=== PATIENT | female | born 1995 | race Asian ===

== ENCOUNTER 2016-06-13 17:12 | Emergency (ER) | payer BC, OTHER ==
--- NOTE | 2016-06-13 18:26 | REP ---
Left wrist four views : There is no fracture or dislocation. Mineralization and joint spaces are normal. There are no calcifications or foreign bodies. Impression: Negative left wrist . Signed by Kosta Moreno MD 06/13/2016 06:18 P
[2016-06-13] MEDS ORDERED: IBUPROFEN 600 MG TAB As Ordered ONE (19:56)
--- NOTE | 2016-06-13 20:07 | EDDOCDS ---
Physician Documentation [facility] Name: Taylor Sol Age: 21 yrs Sex: Female : 1995 Arrival Date: 06/13/2016 Time: 17:12 Bed Triage 1 Private MD: NO PRIMARY PHYSICIAN, . Disposition: 06/13/16 19:57 Discharged to Home/Self Care. Impression: Other specified sprain of left wrist. - Condition is Stable. - Discharge Instructions: Elastic Bandage and RICE, Wrist Pain, Wrist Splint, [id number]. - Prescriptions for Ibuprofen 600 mg Oral Tablet - take 1 tablet by ORAL route every 6 hours As needed take with food; 30 tablet. - Medication Reconciliation, Local Pharmacy Hours, Work Release Form - 3 day form. - Follow up: [facility]; When: 4 - 5 days; Reason: Recheck today's complaints, Continuance of care. - Problem is new. - Symptoms are unchanged. - Notes: ice 20 min an ho Historical: - Allergies: no known allergies; - Home Meds: 1. none - PMHx: Chronic Back pain; chronic headaches; - PSHx: none; - Social history: Smoking status: Patient states was never smoker of tobacco. No barriers to communication noted, The patient speaks fluent Hebrew, Speaks appropriately for age. - Family history: Not pertinent. - : The pt / caregiver states he / she is not on anticoagulants. Home medication list is obtained from the patient. - Exposure Risk Screening:: None identified. BATCH AND FURNACE MANAGER: 06/13 17:22 LMP 06/13/2016 hs1 Vital Signs: 17:13 BP 143 / 78; Pulse 82; Resp 16; Temp 98.8; Pulse Ox 98% ; Weight 75.75 kg / 167 lbs; elp Height 5 ft. 4 in. (162.56 cm); 19:39 BP 148 / 63; Pulse 90; Resp 20; Temp 97.9; Pulse Ox 94% on R/A; Pain 4/10; jmv 17:13 Body Mass Index 28.67 (75.75 kg, 162.56 cm) elp MDM: 17:25 Wrist, Complete Ordered. EDMS 19:47 Financial registration complete. [facility] 19:47 [facility] Payment Agreement was scanned into [employer] and attached to record. [facility] 19:49 Ibuprofen 600 mg PO once ordered. ke 19:49 [facility] Nursing Order ordered. magalis Administered Medications: 20:03 Drug: Ibuprofen 600 mg [ibuprofen 600 mg tablet (1 tabs)] Route: PO; dsf Signatures: Dispatcher MedHost Yfn Hodges, PEEL OVEN TENDER PEEL OVEN TENDER Amrita Orozco RN RN hs1 Taya Stevenson RN RN dsf Sylvia Luevano, Reg Reg [email or web address] The chart was reviewed and I authenticate all verbal orders and agree with the evaluation and treatment provided.Attachments: 19:47 [facility] Payment Agreement [email or web address] MTDD
--- NOTE | 2016-06-13 20:08 | EDDOCDS ---
Nurse's Notes [facility] Name: Taylor Sol Age: 21 yrs Sex: Female : 1995 Arrival Date: 06/13/2016 Time: 17:12 Bed Triage 1 Private MD: NO PRIMARY PHYSICIAN, . Diagnosis: Other specified sprain of left wrist Presentation: 06/13 17:20 Presenting complaint: Patient states: fell on ice and pain in left wrist. Patient hs1 states fell around 4 pm. Swelling noted. Adult Sepsis Screening: The patient does not have new or worsening altered mentation. Patient's respiratory rate is less than 22. Systolic blood pressure is less than or equal to 100 (1 point). Patient has a qSOFA score of 0- Negative Sepsis Screen. Suicide/Homicide risk assessment- the patient denies having any suicidal and/or homicidal ideations and does not present with any other emotional, behavioral or mental health complaints. Status: Patient is not a truck repair service estimator or dependent. Transition of care: patient was not received from another setting of care. 17:20 Method Of Arrival: Walkin/Carried/Asstd hs1 17:20 Acuity: ERIC Level 4 hs1 Triage Assessment: 17:22 General: Appears in no apparent distress, Behavior is appropriate for age, cooperative. hs1 Pain: Location: dorsal aspect of left wrist Pain currently is 6 out of 10 on a pain scale. HIV screening NA for this visit Offered previously. Respiratory: Airway is patent is compromised Respiratory effort is even, unlabored, Respiratory pattern is regular, symmetrical. Musculoskeletal: Swelling present in dorsal aspect of left wrist. MAINTENANCE TECHNICIAN 2ND SHIFT: 17:22 LMP 06/13/2016 hs1 Historical: - Allergies: no known allergies; - Home Meds: 1. none - PMHx: Chronic Back pain; chronic headaches; - PSHx: none; - Social history: Smoking status: Patient states was never smoker of tobacco. No barriers to communication noted, The patient speaks fluent Estonian, Speaks appropriately for age. - Family history: Not pertinent. - : The pt / caregiver states he / she is not on anticoagulants. Home medication list is obtained from the patient. - Exposure Risk Screening:: None identified. Screenin:05 Screening information is obtained from the patient. Fall risk: No risks identified. dsf Assistance ADL's: requires no assistance with activities of daily living. Abuse/DV Screen: The patient / caregiver reports he/she is: not in a situation that causes fear, pain or injury. Nutritional screening: No deficits noted. Advance Directives: Currently, there is no health care proxy. home support is adequate. Assessment: 20:05 General: Appears in no apparent distress, Behavior is appropriate for age, cooperative. dsf Pain: Location: dorsal aspect of left wrist Pain currently is 4 out of 10 on a pain scale. Neurological: Level of Consciousness is awake, alert. Cardiovascular: No deficits noted. Respiratory: No deficits noted. Derm: Skin is pink, warm & dry. Vital Signs: 17:13 BP 143 / 78; Pulse 82; Resp 16; Temp 98.8; Pulse Ox 98% ; Weight 75.75 kg; Height 5 ft. elp 4 in. (162.56 cm); 19:39 BP 148 / 63; Pulse 90; Resp 20; Temp 97.9; Pulse Ox 94% on R/A; Pain 4/10; jmv 17:13 Body Mass Index 28.67 (75.75 kg, 162.56 cm) [facility] Vitals: 17:13 Log In Time: June 13, 2016 at 17:11. [facility] ED Course: 17:13 Patient visited by Natalie Orellana PCA. elp 17:13 NO PRIMARY PHYSICIAN, . is Private Physician. elp 17:13 Patient moved to Waiting elp 17:14 Patient visited by Natalie Orellana PCA. elp 17:14 Patient moved to Pre RCE elp 17:21 Triage Initiated hs1 19:09 Wrist, Complete Returned. EDMS 19:17 Patient name changed from Ernalyn\S\Tansioco\S\Aidee\S\ to Ernalyn\S\Tansioco\S\Sol. EDMS 19:36 Patient moved to Triage 1 dsf 19:40 Patient visited by Jonny Washington PCA. jmv 19:42 Yfn Galindo FNP is [facility]. ke 19:42 Patient visited by Yfn Galindo FNP. ke 19:42 Patient visited by Yfn Galindo FNP. ke 19:47 [facility] [place] Agreement was scanned into Ixtens and attached to record. [email or web address] 19:57 [facility] is Referral Physician. ke 20:04 No IV's were initiated during this patient's visit. No procedures done that require dsf assistance. Velcro wrist splint applied to left wrist. Patient with positive distal sensation and brisk distal capillary refill after application. 20:05 The patient / caregiver is instructed regarding the plan of care and ED course. dsf Administered Medications: 20:03 Drug: Ibuprofen 600 mg [ibuprofen 600 mg tablet (1 tabs)] Route: PO; dsf Order Results: Radiology Order: Wrist, Complete Test: Wrist, Complete REASON FOR EXAMINATION: Trauma; Left wrist four views :; ; There is no fracture or dislocation.; ; Mineralization and joint spaces are normal.; ; There are no calcifications or foreign bodies.; ; Impression:; ; Negative left wrist .; ; ; Signed by; Kosta Moreno MD 06/13/2016 06:18 P; Outcome: 19:57 Discharge ordered by Provider. ke 20:05 Discharge Assessment: Patient awake, alert and oriented x 3. No cognitive and/or dsf functional deficits noted. Patient verbalized understanding of disposition instructions. patient administered narcotics - no. The following High Risk Discharge criteria are identified: None. Discharged to home ambulatory. Condition: stable. Discharge instructions given to patient, Instructed on discharge instructions, follow up and referral plans. medication usage, Demonstrated understanding of instructions, medications, Pt was receptive of discharge instructions/ teaching. Prescriptions given X 1, Work note provided to patient. No special radiology studies were completed. Property sent home with patient. 20:07 Patient left the ED. dsf Signatures: Dispatcher MedHost EDMS Yfn Galindo, CITY ENGINEER CITY ENGINEER Amrita Orozco RN RN hs1 Taya Stevenson RN RN dsf Natalie Orellana, OFFSET PLATE PREPARATION SUPERVISOR OFFSET PLATE PREPARATION SUPERVISOR Sylvia Dubon, Reg Reg [email or web address] Jonny Washington, OFFSET PLATE PREPARATION SUPERVISOR OFFSET PLATE PREPARATION SUPERVISOR jmv Corrections: (The following items were deleted from the chart) 17:24 17:20 Acuity: ERIC Level 3 hs1 hs1 [facility]
--- NOTE | 2016-06-15 21:07 | EDDOCDS ---
Physician Documentation [facility] Name: Taylor Sol Age: 21 yrs Sex: Female : 1995 Arrival Date: 06/13/2016 Time: 17:12 Bed Triage 1 Private MD: NO PRIMARY PHYSICIAN, . Disposition: 06/13/16 19:57 Discharged to Home/Self Care. Impression: Other specified sprain of left wrist. - Condition is Stable. - Discharge Instructions: Elastic Bandage and RICE, Wrist Pain, Wrist Splint, [id number]. - Prescriptions for Ibuprofen 600 mg Oral Tablet - take 1 tablet by ORAL route every 6 hours As needed take with food; 30 tablet. - Medication Reconciliation, Local Pharmacy Hours, Work Release Form - 3 day form. - Follow up: [facility]; When: 4 - 5 days; Reason: Recheck today's complaints, Continuance of care. - Problem is new. - Symptoms are unchanged. - Notes: ice 20 min an ho Historical: - Allergies: no known allergies; - Home Meds: 1. none - PMHx: Chronic Back pain; chronic headaches; - PSHx: none; - Social history: Smoking status: Patient states was never smoker of tobacco. No barriers to communication noted, The patient speaks fluent Japanese, Speaks appropriately for age. - Family history: Not pertinent. - : The pt / caregiver states he / she is not on anticoagulants. Home medication list is obtained from the patient. - Exposure Risk Screening:: None identified. BUSINESS CONTINUITY COORDINATOR: 06/13 17:22 LMP 06/13/2016 hs1 Vital Signs: 17:13 BP 143 / 78; Pulse 82; Resp 16; Temp 98.8; Pulse Ox 98% ; Weight 75.75 kg / 167 lbs; elp Height 5 ft. 4 in. (162.56 cm); 19:39 BP 148 / 63; Pulse 90; Resp 20; Temp 97.9; Pulse Ox 94% on R/A; Pain 4/10; jmv 17:13 Body Mass Index 28.67 (75.75 kg, 162.56 cm) elp MDM: 17:25 Wrist, Complete Ordered. EDMS 19:47 Financial registration complete. [facility] 19:47 [facility] Payment Agreement was scanned into AllDigital and attached to record. [facility] 19:49 Ibuprofen 600 mg PO once ordered. ke [facility] Order ordered. magalis 06/14 12:11 T-Sheet-- Draft Copy was scanned into AllDigital and attached to record. gb Administered Medications: 06/13 20:03 Drug: Ibuprofen 600 mg [ibuprofen 600 mg tablet (1 tabs)] Route: PO; dsf 20:07 Follow up: Response: Pt left department before re-evaluation is appropriate dsf Signatures: Dispatcher MedHost EDMS Joslyn Lamb, Reg Reg gb Yfn Galindo, MOLDER SHOULDER PAD MOLDER SHOULDER PAD Amrita Orozco RN RN hs1 Taya StevensonRN RN dsf Sylvia Luevano, Reg Reg ks16 The chart was reviewed and I authenticate all verbal orders and agree with the evaluation and treatment provided.Attachments: 19:47 [facility] Payment Agreement [email or web address] 06/14 12:11 T-Sheet-- Draft Copy gb Chart Complete MTDD
--- NOTE | 2016-06-15 21:07 | EDDOCDS ---
Nurse's Notes [facility] Name: Taylor Sol Age: 21 yrs Sex: Female : 1995 Arrival Date: 06/13/2016 Time: 17:12 Bed Triage 1 Private MD: NO PRIMARY PHYSICIAN, . Diagnosis: Other specified sprain of left wrist Presentation: 06/13 17:20 Presenting complaint: Patient states: fell on ice and pain in left wrist. Patient hs1 states fell around 4 pm. Swelling noted. Adult Sepsis Screening: The patient does not have new or worsening altered mentation. Patient's respiratory rate is less than 22. Systolic blood pressure is less than or equal to 100 (1 point). Patient has a qSOFA score of 0- Negative Sepsis Screen. Suicide/Homicide risk assessment- the patient denies having any suicidal and/or homicidal ideations and does not present with any other emotional, behavioral or mental health complaints. Status: Patient is not a medical billing service or dependent. Transition of care: patient was not received from another setting of care. 17:20 Method Of Arrival: Walkin/Carried/Asstd hs1 17:20 Acuity: ERIC Level 4 hs1 Triage Assessment: 17:22 General: Appears in no apparent distress, Behavior is appropriate for age, cooperative. hs1 Pain: Location: dorsal aspect of left wrist Pain currently is 6 out of 10 on a pain scale. HIV screening NA for this visit Offered previously. Respiratory: Airway is patent is compromised Respiratory effort is even, unlabored, Respiratory pattern is regular, symmetrical. Musculoskeletal: Swelling present in dorsal aspect of left wrist. HERBICIDE SPRAYER: 17:22 LMP 06/13/2016 hs1 Historical: - Allergies: no known allergies; - Home Meds: 1. none - PMHx: Chronic Back pain; chronic headaches; - PSHx: none; - Social history: Smoking status: Patient states was never smoker of tobacco. No barriers to communication noted, The patient speaks fluent Kazakh, Speaks appropriately for age. - Family history: Not pertinent. - : The pt / caregiver states he / she is not on anticoagulants. Home medication list is obtained from the patient. - Exposure Risk Screening:: None identified. Screenin:05 Screening information is obtained from the patient. Fall risk: No risks identified. dsf Assistance ADL's: requires no assistance with activities of daily living. Abuse/DV Screen: The patient / caregiver reports he/she is: not in a situation that causes fear, pain or injury. Nutritional screening: No deficits noted. Advance Directives: Currently, there is no health care proxy. home support is adequate. Assessment: 20:05 General: Appears in no apparent distress, Behavior is appropriate for age, cooperative. dsf Pain: Location: dorsal aspect of left wrist Pain currently is 4 out of 10 on a pain scale. Neurological: Level of Consciousness is awake, alert. Cardiovascular: No deficits noted. Respiratory: No deficits noted. Derm: Skin is pink, warm & dry. Vital Signs: 17:13 BP 143 / 78; Pulse 82; Resp 16; Temp 98.8; Pulse Ox 98% ; Weight 75.75 kg; Height 5 ft. elp 4 in. (162.56 cm); 19:39 BP 148 / 63; Pulse 90; Resp 20; Temp 97.9; Pulse Ox 94% on R/A; Pain 4/10; jmv 17:13 Body Mass Index 28.67 (75.75 kg, 162.56 cm) [facility] Vitals: 17:13 Log In Time: June 13, 2016 at 17:11. [facility] ED Course: 17:13 Patient visited by Natalie Orellana PCA. elp 17:13 NO PRIMARY PHYSICIAN, . is Private Physician. elp 17:13 Patient moved to Waiting elp 17:14 Patient visited by Natalie Orellana PCA. elp 17:14 Patient moved to Pre RCE elp 17:21 Triage Initiated hs1 19:09 Wrist, Complete Returned. EDMS 19:17 Patient name changed from Ernalyn\S\Tansioco\S\Aidee\S\ to Ernalyn\S\Tansioco\S\Sol. EDMS 19:36 Patient moved to Triage 1 dsf 19:40 Patient visited by Jonny Washington PCA. jmv 19:42 Yfn Galindo FNP is [facility]. ke 19:42 Patient visited by Yfn Galindo FNP. ke 19:42 Patient visited by Yfn Galindo FNP. ke 19:47 [facility] Payment Agreement was scanned into Drizly and attached to record. [email or web address] 19:57 [facility] is Referral Physician. ke 20:04 No IV's were initiated during this patient's visit. No procedures done that require dsf assistance. Velcro wrist splint applied to left wrist. Patient with positive distal sensation and brisk distal capillary refill after application. 20:05 The patient / caregiver is instructed regarding the plan of care and ED course. dsf 06/14 12:11 T-Sheet-- Draft Copy was scanned into Drizly and attached to record. gb Administered Medications: 06/13 20:03 Drug: Ibuprofen 600 mg [ibuprofen 600 mg tablet (1 tabs)] Route: PO; dsf 20:07 Follow up: Response: Pt left department before re-evaluation is appropriate dsf Order Results: Radiology Order: Wrist, Complete Test: Wrist, Complete REASON FOR EXAMINATION: Trauma; Left wrist four views :; ; There is no fracture or dislocation.; ; Mineralization and joint spaces are normal.; ; There are no calcifications or foreign bodies.; ; Impression:; ; Negative left wrist .; ; ; Signed by; Kosta Moreno MD 06/13/2016 06:18 P; Outcome: 19:57 Discharge ordered by Provider. ke 20:05 Discharge Assessment: Patient awake, alert and oriented x 3. No cognitive and/or dsf functional deficits noted. Patient verbalized understanding of disposition instructions. patient administered narcotics - no. The following High Risk Discharge criteria are identified: None. Discharged to home ambulatory. Condition: stable. Discharge instructions given to patient, Instructed on discharge instructions, follow up and referral plans. medication usage, Demonstrated understanding of instructions, medications, Pt was receptive of discharge instructions/ teaching. Prescriptions given X 1, Work note provided to patient. No special radiology studies were completed. Property sent home with patient. 20:07 Patient left the ED. dsf Signatures: Dispatcher MedHo EDKS Joslyn Lamb, Reg Reg gb Yfn Galindo, CONSTRUCTION CONTROLLER CONSTRUCTION CONTROLLER Amrita Orozco RN RN hs1 Taya Stevenson RN RN dsf Natalie Orellana, CREDIT CONTROL CLERK CREDIT CONTROL CLERK Sylvia Dubon, Reg Reg [email or web address] Jonny Washington, CREDIT CONTROL CLERK CREDIT CONTROL CLERK jmv Corrections: (The following items were deleted from the chart) 17:24 17:20 Acuity: ERIC Level 3 hs1 hs1 Chart Complete MTDD
--- NOTE | 2016-06-15 21:07 | EDDOCDS ---
Physician Documentation [facility] Name: Taylor Sol Age: 21 yrs Sex: Female : 1995 Arrival Date: 06/13/2016 Time: 17:12 Bed Triage 1 Private MD: NO PRIMARY PHYSICIAN, . Disposition: 06/13/16 19:57 Discharged to Home/Self Care. Impression: Other specified sprain of left wrist. - Condition is Stable. - Discharge Instructions: Elastic Bandage and RICE, Wrist Pain, Wrist Splint, [id number]. - Prescriptions for Ibuprofen 600 mg Oral Tablet - take 1 tablet by ORAL route every 6 hours As needed take with food; 30 tablet. - Medication Reconciliation, Local Pharmacy Hours, Work Release Form - 3 day form. - Follow up: [facility]; When: 4 - 5 days; Reason: Recheck today's complaints, Continuance of care. - Problem is new. - Symptoms are unchanged. - Notes: ice 20 min an ho Historical: - Allergies: no known allergies; - Home Meds: 1. none - PMHx: Chronic Back pain; chronic headaches; - PSHx: none; - Social history: Smoking status: Patient states was never smoker of tobacco. No barriers to communication noted, The patient speaks fluent Turkish, Speaks appropriately for age. - Family history: Not pertinent. - : The pt / caregiver states he / she is not on anticoagulants. Home medication list is obtained from the patient. - Exposure Risk Screening:: None identified. AIR DEFENSE SPECIALIST: 06/13 17:22 LMP 06/13/2016 hs1 Vital Signs: 17:13 BP 143 / 78; Pulse 82; Resp 16; Temp 98.8; Pulse Ox 98% ; Weight 75.75 kg / 167 lbs; elp Height 5 ft. 4 in. (162.56 cm); 19:39 BP 148 / 63; Pulse 90; Resp 20; Temp 97.9; Pulse Ox 94% on R/A; Pain 4/10; jmv 17:13 Body Mass Index 28.67 (75.75 kg, 162.56 cm) elp MDM: 17:25 Wrist, Complete Ordered. EDMS 19:47 Financial registration complete[address] [facility] 19:47 [facility] Payment Agreement was scanned into [employer] and attached to record. [facility] 19:49 Ibuprofen 600 mg PO once ordered. ke 19:49 [facility]. magalis 06/14 12:11 T-Sheet-- Draft Copy was scanned into [employer] and attached to record. gb Administered Medications: 06/13 20:03 Drug: Ibuprofen 600 mg [ibuprofen 600 mg tablet (1 tabs)] Route: PO; dsf 20:07 Follow up: Response: Pt left department before re-evaluation is appropriate dsf Signatures: Dispatcher MedHost EDMS Joslyn Lamb, Reg Reg gb Yfn Galindo, ENGRAVED ROLLER INSPECTOR ENGRAVED ROLLER INSPECTOR Amrita Orozco RN RN hs1 Taya StevensonRN RN dsf Sylvia Luevano, Reg Reg [email or web address] The chart was reviewed and I authenticate all verbal orders and agree with the evaluation and treatment provided.Attachments: 19:47 [facility] Payment Agreement [email or web address] 06/14 12:11 T-Sheet-- Draft Copy gb Chart Complete MTDD
== END 2016-06-13 20:07 | disposition home or self-care (01) ==
LOC: M ED 17:12
DX: S63.502A Unspecified sprain of left wrist, initial encounter (principal); W19.XXXA Unspecified fall, initial encounter; Y92.89 Other specified places as the place of occurrence of the external cause; Y93.89 Activity, other specified; Y99.8 Other external cause status; M54.9 Dorsalgia, unspecified; R51 Headache

== ENCOUNTER 2016-11-28 22:01 | Emergency (ER) | payer BC ==
[~2016-11-28] VITALS: Ht 162.6 cm; Wt 91.3 kg
[2016-11-28] MEDS ORDERED: NORCO, ANEXSIA 5/325MG TABLET (HYDROcodone/ACETAMINOPHEN) PO ONE (23:00)
[2016-11-28] MEDS ORDERED: AUGMENTIN 875 MG TAB PO ONE (23:00)
[2016-11-28] MEDS ORDERED: LIDOCAINE 2% MDV 20 ML VIAL SC ONE (23:00)
[2016-11-29] MEDS ORDERED: AUGM875T28 PO (00:49)
[2016-11-29 00:50] VITALS: BP 136/82
--- NOTE | 2016-11-29 01:25 | REP ---
Clinical: Trauma. Technique: AP, lateral, bilateral oblique views right hand . Findings: The osseous structures and joint spaces are intact and normal. There is no evidence for acute fracture or dislocation. Surrounding soft tissues are unremarkable. No subcutaneous emphysema or radiodense foreign body. Impression: Normal examination . No acute fracture or dislocation. Signed by Carlitos Yung MD 11/29/2016 01:16 A
== END 2016-11-29 00:54 | disposition home or self-care (01) ==
LOC: M ED 22:01
DX: S01.411A Laceration without foreign body of right cheek and temporomandibular area, initial encounter (principal); S61.411A Laceration without foreign body of right hand, initial encounter; W54.0XXA Bitten by dog, initial encounter; Y92.410 Unspecified street and highway as the place of occurrence of the external cause; Y93.9 Activity, unspecified; Y99.9 Unspecified external cause status

== ENCOUNTER 2016-12-07 11:19 | Emergency (ER) | payer BC ==
[~2016-12-07] VITALS: Ht 165.1 cm; Wt 89.9 kg
[~2016-12-07 11:19] MED LIST: AUGM875T28 PO
[2016-12-07 11:21] VITALS: BP 133/72
== END 2016-12-07 12:11 | disposition home or self-care (01) ==
LOC: M ED 11:19
DX: Z48.02 Encounter for removal of sutures (principal)

== ENCOUNTER → 2021-04-07 | Outpatient (CLI) | payer BC, OTHER ==
[~2021-04-07] MED LIST changes: +MECL-86 PO; +VITA200032 PO; +VITMTA PO
== END ==
LOC: M RAD 09:54
PROVIDERS: ATTEND Pediatrics
DX: R79.89 Other specified abnormal findings of blood chemistry (principal); Q89.2 Congenital malformations of other endocrine glands

== ENCOUNTER 2021-05-07 21:27 | Observation (INO) | payer BC, OTHER ==
[~2021-05-07] VITALS: Ht 165.1 cm; Wt 79.5 kg
[~2021-05-07 21:27] MED LIST changes: -MECL-86 PO; -VITA200032 PO; -VITMTA PO
[2021-05-07 22:42] LABS: BASO # 0.1 10^3/uL (0.0-0.2); BASO % 0.5 % (0.0-1.0); EOS # 0.3 10^3/uL (0.0-0.5); EOS % 2.7 % (0.0-3.0); HEMATOCRIT 42.5 % (36.0-47.0); HEMOGLOBIN 14.2 g/dl (12.0-15.5); LYMPH # 3.1 10^3/uL (1.5-5.0); LYMPH % 34.4 % (24.0-44.0); MEAN CORPUSCULAR HEMOGLOBIN 27.4 pg (27.0-33.0); MEAN CORPUSCULAR HGB CONC 33.4 g/dl (32.0-36.5); MONO # 0.4 10^3/uL (0.0-0.8); MONO % 4.6 % (2.0-8.0); NEUTROPHILS # 5.2 10^3/uL (1.5-8.5); NEUTROPHILS % 57.5 % (36.0-66.0); PLATELET COUNT, AUTOMATED 367 10^3/uL (150-450); RED BLOOD COUNT 5.18 10^6/uL (4.00-5.40); WHITE BLOOD COUNT 9.1 10^3/uL (4.0-10.0)
[2021-05-07] MEDS ORDERED: NS 1,000 ML IV ONE (23:00)
[2021-05-07] MEDS ORDERED: MECLIZINE 25 MG TABLET PO ONE (23:10)
[2021-05-07 23:14] LABS: BLOOD UREA NITROGEN 11 MG/DL (7-18); CALCIUM LEVEL 9.2 MG/DL (8.5-10.1); CARBON DIOXIDE LEVEL 26 MEQ/L (21-32); CHLORIDE LEVEL 106 MEQ/L (98-107); CREATININE FOR GFR 0.65 MG/DL (0.55-1.30); GLOMERULAR FILTRATION RATE > 60.0 (>60); GLUCOSE, FASTING 131 MG/DL (70-100); POTASSIUM SERUM 4.4 MEQ/L (3.5-5.1); SODIUM LEVEL 138 MEQ/L (136-145)
[2021-05-07 23:26] LABS: HCG, SERUM QUALITATIVE NEGATIVE (NEGATIVE)
[2021-05-08 00:11] LABS: ALBUMIN 3.7 GM/DL (3.2-5.2); ALT/SGPT 38 U/L (12-78); BILIRUBIN,DIRECT < 0.1 MG/DL (0.0-0.2); BILIRUBIN,TOTAL 0.2 MG/DL (0.2-1.0); FREE T4 0.97 NG/DL (0.76-1.46); TOTAL PROTEIN 7.8 GM/DL (6.4-8.2)
[2021-05-08 00:19] LABS: HEMOGLOBIN A1c 5.1 %
[2021-05-08 01:00] LABS: CK-MB VALUE MASS < 1.0 NG/ML (<3.6); CPK CREATINE PHOSPHOKINASE 119 U/L (26-192); MB/CK RELATIVE INDEX 0.84 (< OR =4)
[2021-05-08] MEDS: NS 1,000 ML IV SCH ×2 (01:40→03:15)
[2021-05-08] MEDS ORDERED: VITA200032 PO (01:53)
[2021-05-08] MEDS ORDERED: VITMTA PO (01:53)
[2021-05-08] MEDS ORDERED: HOME MED LIST COMPLETE! XX SCH (01:55)
[2021-05-08 02:05] LABS: INR 0.97; PROTHROMBIN TIME 13.3 SECONDS (12.7-14.5)
[2021-05-08 02:06] LABS: PARTIAL THROMBOPLASTIN TIME 27.2 SECONDS (25.9-37.0)
[2021-05-08 02:18] LABS: ETHYL ALCOHOL (ETHANOL) < 0.003 % (0.000-0.010)
[2021-05-08] MEDS ORDERED: ACETAMINOPHEN TAB 650MG DOSE (2X325MG) PO PRN (02:40)
[2021-05-08 04:11] LABS: RSV AMPLIFICATION NEGATIVE (NEGATIVE)
[2021-05-08 06:00] VITALS: BP 129/87
[2021-05-08 07:25] LABS: BASO # 0.1 10^3/uL (0.0-0.2); BASO % 0.6 % (0.0-1.0); EOS # 0.4 10^3/uL (0.0-0.5); EOS % 3.6 % (0.0-3.0); HEMATOCRIT 38.5 % (36.0-47.0); HEMOGLOBIN 12.6 g/dl (12.0-15.5); LYMPH # 4.2 10^3/uL (1.5-5.0); LYMPH % 41.2 % (24.0-44.0); MEAN CORPUSCULAR HEMOGLOBIN 27.5 pg (27.0-33.0); MEAN CORPUSCULAR HGB CONC 32.7 g/dl (32.0-36.5); MEAN CORPUSCULAR VOLUME 83.9 fl (80.0-96.0); MONO # 0.7 10^3/uL (0.0-0.8); MONO % 6.5 % (2.0-8.0); NEUTROPHILS # 4.8 10^3/uL (1.5-8.5); NEUTROPHILS % 47.8 % (36.0-66.0); PLATELET COUNT, AUTOMATED 313 10^3/uL (150-450); RED BLOOD COUNT 4.59 10^6/uL (4.00-5.40); WHITE BLOOD COUNT 10.1 10^3/uL (4.0-10.0)
[2021-05-08 07:43] LABS: BLOOD UREA NITROGEN 10 MG/DL (7-18); CALCIUM LEVEL 8.6 MG/DL (8.5-10.1); CARBON DIOXIDE LEVEL 24 MEQ/L (21-32); CHLORIDE LEVEL 110 MEQ/L (98-107); CREATININE FOR GFR 0.61 MG/DL (0.55-1.30); GLOMERULAR FILTRATION RATE > 60.0 (>60); GLUCOSE, FASTING 93 MG/DL (70-100); POTASSIUM SERUM 3.8 MEQ/L (3.5-5.1); SODIUM LEVEL 139 MEQ/L (136-145)
[2021-05-08] MEDS: MULTIVITAMINS/MINERALS THERAP 1 TAB PO SCH (10:16)
[2021-05-08 10:22] VITALS: BP_SYST 122; BP_SYST 129; BP_SYST 132; BP_DIAS 72; BP_DIAS 74; BP_DIAS 75
[2021-05-08 11:08] LABS: APPEARANCE, URINE CLEAR (CLEAR); BACTERIA, URINE AUTO NEGATIVE (NEGATIVE); BILIRUBIN, URINE AUTO NEGATIVE (NEGATIVE); BLOOD, URINE BLOOD 1+ (NEGATIVE); COLOR, URINE STRAW (YELLOW); GLUCOSE, URINE (UA) AUTO NEGATIVE (NEGATIVE); KETONE, URINE AUTO NEGATIVE (NEGATIVE); LEUKOCYTE ESTERASE, URINE AUTO NEGATIVE (NEGATIVE); MUCUS, URINE SMALL (NEGATIVE); NITRITE, URINE AUTO NEGATIVE (NEGATIVE); PROTEIN, URINE AUTO NEGATIVE (NEGATIVE); RBC, URINE AUTO 0 /HPF (0-3); SPECIFIC GRAVITY URINE AUTO 1.008 (1.002-1.035); SQUAMOUS EPITHELIAL CELL UR AU 2 /HPF (0-6); UROBILINOGEN, URINE AUTO 0.2 mg/dL (0.0-2.0); WBC, URINE AUTO 0 /HPF (0-3)
[2021-05-08 14:00] VITALS: BP 129/79
[2021-05-08] MEDS: HEPARIN SOD (PORCINE) 5000UNITS/ML 1ML VIAL/SYRINGE SQ SCH ×2 (15:45→21:14)
[2021-05-08 22:00] VITALS: BP 148/89
[2021-05-09] MEDS: HEPARIN SOD (PORCINE) 5000UNITS/ML 1ML VIAL/SYRINGE SQ SCH ×3 (05:44→21:07)
[2021-05-09 05:58] VITALS: BP 116/67
[2021-05-09 07:07] LABS: HEMATOCRIT 41.4 % (36.0-47.0); HEMOGLOBIN 13.3 g/dl (12.0-15.5); MEAN CORPUSCULAR HEMOGLOBIN 26.9 pg (27.0-33.0); MEAN CORPUSCULAR HGB CONC 32.1 g/dl (32.0-36.5); MEAN CORPUSCULAR VOLUME 83.8 fl (80.0-96.0); PLATELET COUNT, AUTOMATED 328 10^3/uL (150-450); RED BLOOD COUNT 4.94 10^6/uL (4.00-5.40); WHITE BLOOD COUNT 9.5 10^3/uL (4.0-10.0)
[2021-05-09 07:27] LABS: BLOOD UREA NITROGEN 13 MG/DL (7-18); CALCIUM LEVEL 8.7 MG/DL (8.5-10.1); CARBON DIOXIDE LEVEL 26 MEQ/L (21-32); CHLORIDE LEVEL 108 MEQ/L (98-107); CREATININE FOR GFR 0.69 MG/DL (0.55-1.30); GLOMERULAR FILTRATION RATE > 60.0 (>60); GLUCOSE, FASTING 81 MG/DL (70-100); MAGNESIUM LEVEL 2.3 MG/DL (1.8-2.4); PHOSPHORUS LEVEL 4.3 MG/DL (2.5-4.9); POTASSIUM SERUM 3.8 MEQ/L (3.5-5.1); SODIUM LEVEL 138 MEQ/L (136-145)
[2021-05-09] MEDS: MULTIVITAMINS/MINERALS THERAP 1 TAB PO SCH (09:08)
[2021-05-09 09:46] LABS: PROLACTIN 5.7 NG/ML; TOTAL 25(OH) VITAMIN D 15.9 NG/ML (30.0-100.0); VITAMIN B12 LEVEL 391 PG/ML (247-911)
[2021-05-09] MEDS: VITAMIN D 1,000 INTERNATIONAL UNITS TABLET PO SCH (13:59)
[2021-05-09 14:00] VITALS: BP 124/68
[2021-05-09 22:00] VITALS: BP 132/80
[2021-05-10] MEDS: HEPARIN SOD (PORCINE) 5000UNITS/ML 1ML VIAL/SYRINGE SQ SCH (05:59)
[2021-05-10 06:00] VITALS: BP 131/74
[2021-05-10] MEDS: VITAMIN D 1,000 INTERNATIONAL UNITS TABLET PO SCH (08:42)
[2021-05-10] MEDS: MULTIVITAMINS/MINERALS THERAP 1 TAB PO SCH (08:42)
[2021-05-10] MEDS ORDERED: MECL-86 PO (09:02)
== END 2021-05-10 11:04 | disposition home or self-care (01) ==
LOC: M ED 21:27 → M ED INP 21:28 → UNDOADMOB 05-08 01:39 → ENRESERV 05-08 04:23 → M MSPAV 05-08 05:35 → M ED INP 05-08 05:35 → UNDODISOB 05-10 11:04
PROVIDERS: ADMIT Internal Medicine; ATTEND Internal Medicine
DX: R55 Syncope and collapse (principal); H81.399 Other peripheral vertigo, unspecified ear; E66.9 Obesity, unspecified; R91.1 Solitary pulmonary nodule; N92.1 Excessive and frequent menstruation with irregular cycle; N83.202 Unspecified ovarian cyst, left side; M81.8 Other osteoporosis without current pathological fracture; E03.9 Hypothyroidism, unspecified; D64.9 Anemia, unspecified; Z87.891 Personal history of nicotine dependence; Z79.899 Other long term (current) drug therapy
CPT/HCPCS: 36415; 70450; 70544; 70547; 70551; 72125; 76856; 80048; 80076; 81001; 82077; 82306; 82550; 82553; 82607; 83036; 83605; 83735; 84100; 84146; 84439; 84443; 84484; 84703; 85025; 85027; 85610; 85730; 86850; 86900; 86901; 87631; 93005; 93306; 93976; 96361; 96372; 96374; 97112; 97116; 97162; 97530; 99285; J1644

== ENCOUNTER → 2021-11-02 | Outpatient (CLI) | payer BC, OTHER ==
[~2021-11-02] MED LIST changes: +MECL-86 PO; +VITA200032 PO; +VITMTA PO
== END ==
LOC: M RAD 16:25
PROVIDERS: ATTEND Pediatrics
DX: R91.1 Solitary pulmonary nodule (principal)

== ENCOUNTER 2022-04-12 11:55 | Emergency (ER) | payer BC, OTHER ==
[~2022-04-12] VITALS: Ht 165.1 cm; Wt 94.7 kg
[2022-04-12] MEDS ORDERED: LEVO50TA5 (12:07)
[2022-04-12] MEDS ORDERED: ACETAMINOPHEN 500 MG TAB PO ONE (12:10)
[2022-04-12] MEDS ORDERED: guaiFENesin/CODEINE SYRUP 5 ML UDC PO ONE (12:50)
[2022-04-12] MEDS ORDERED: GUAI1SOL7 PO (13:39)
[2022-04-12 13:53] VITALS: BP 131/69
== END 2022-04-12 14:00 | disposition home or self-care (01) ==
LOC: M ED 11:55
DX: J09.X1 Influenza due to identified novel influenza A virus with pneumonia (principal); E03.9 Hypothyroidism, unspecified; Z79.890 Hormone replacement therapy; Z79.899 Other long term (current) drug therapy

== ENCOUNTER → 2022-11-15 | Outpatient (REF) | payer BC, OTHER ==
[~2022-11-15] MED LIST changes: +GUAI1SOL7 PO; +LEVO50TA5
[2022-11-15 18:00] LABS: BASO # 0.1 10^3/uL (0.0-0.2); BASO % 0.7 % (0.0-1.0); EOS # 0.7 10^3/uL (0.0-0.5); EOS % 5.7 % (0.0-3.0); HEMATOCRIT 41.2 % (36.0-47.0); HEMOGLOBIN 13.3 g/dl (12.0-15.5); LYMPH # 3.5 10^3/uL (1.5-5.0); LYMPH % 29.4 % (24.0-44.0); MEAN CORPUSCULAR HEMOGLOBIN 27.1 pg (27.0-33.0); MEAN CORPUSCULAR HGB CONC 32.3 g/dl (32.0-36.5); MEAN CORPUSCULAR VOLUME 83.9 fl (80.0-96.0); MONO # 0.8 10^3/uL (0.0-0.8); MONO % 6.9 % (2.0-8.0); NEUTROPHILS # 6.8 10^3/uL (1.5-8.5); PLATELET COUNT, AUTOMATED 370 10^3/uL (150-450); RED BLOOD COUNT 4.91 10^6/uL (4.00-5.40); WHITE BLOOD COUNT 11.8 10^3/uL (4.0-10.0)
[2022-11-15 18:19] LABS: THYROID STIMULATING HORMONE 3.004 uIU/ML (0.55-4.78)
[2022-11-15 18:20] LABS: TOTAL 25(OH) VITAMIN D 19.7 NG/ML (20.0-100.0)
== END ==
LOC: M LAB REF 16:44
PROVIDERS: ATTEND Pediatrics
DX: E03.9 Hypothyroidism, unspecified (principal); E55.9 Vitamin D deficiency, unspecified

== ENCOUNTER → 2023-03-14 | Outpatient (CLI) | payer BC, OTHER ==
[2023-03-14 17:17] LABS: BASO % 0.4 % (0.0-1.0); EOS # 0.2 10^3/uL (0.0-0.5); EOS % 2.2 % (0.0-3.0); HEMATOCRIT 43.5 % (36.0-47.0); LYMPH # 2.9 10^3/uL (1.5-5.0); LYMPH % 30.1 % (24.0-44.0); MEAN CORPUSCULAR HEMOGLOBIN 27.1 pg (27.0-33.0); MEAN CORPUSCULAR HGB CONC 32.2 g/dl (32.0-36.5); MEAN CORPUSCULAR VOLUME 84.3 fl (80.0-96.0); MONO # 0.5 10^3/uL (0.0-0.8); MONO % 4.9 % (2.0-8.0); NEUTROPHILS # 5.9 10^3/uL (1.5-8.5); NEUTROPHILS % 62.1 % (36.0-66.0); PLATELET COUNT, AUTOMATED 379 10^3/uL (150-450); RED BLOOD COUNT 5.16 10^6/uL (4.00-5.40); WHITE BLOOD COUNT 9.5 10^3/uL (4.0-10.0)
[2023-03-14 17:49] LABS: LIPASE 36 U/L (12-53)
[2023-03-14 17:50] LABS: AMYLASE 44 U/L (30-118)
[2023-03-14 17:51] LABS: ALBUMIN 3.7 G/DL (3.2-5.2); ALKALINE PHOSPHATASE 70 U/L (46-116); ALT/SGPT 23 U/L (7.0-40); AST/SGOT 12 U/L (<34); BILIRUBIN,TOTAL 0.5 MG/DL (0.3-1.2); BLOOD UREA NITROGEN 10 MG/DL (9-23); CALCIUM LEVEL 9.4 MG/DL (8.5-10.1); CARBON DIOXIDE LEVEL 24 MMOL/L (20-31); CHLORIDE LEVEL 106 MMOL/L (98-107); CREATININE FOR GFR 0.66 MG/DL (0.55-1.30); GLOMERULAR FILTRATION RATE > 60.0 (>60); GLUCOSE, FASTING 120 MG/DL (60-100); POTASSIUM SERUM 3.5 MMOL/L (3.5-5.1); SODIUM LEVEL 136 MMOL/L (136-145); TOTAL PROTEIN 7.5 G/DL (5.7-8.2)
== END ==
LOC: M WUC 12:55
PROVIDERS: ATTEND Physician Assistant
DX: R10.811 Right upper quadrant abdominal tenderness (principal)

== ENCOUNTER → 2023-03-19 | Outpatient (CLI) | payer BC, OTHER | LOC: M WHC 08:34 | PROVIDERS: ATTEND Physician Assistant | DX: R10.811 Right upper quadrant abdominal tenderness (principal); K80.20 Calculus of gallbladder without cholecystitis without obstruction; R16.0 Hepatomegaly, not elsewhere classified ==

== ENCOUNTER → 2023-04-09 | Outpatient (REF) | payer BC, OTHER | LOC: M LAB REF 13:24 | PROVIDERS: ATTEND Pediatrics | DX: E03.8 Other specified hypothyroidism (principal) ==

== ENCOUNTER 2023-07-05 07:28 | Day surgery (SDC) | payer BC, OTHER ==
[~2023-07-05] VITALS: Ht 165.1 cm; Wt 94.3 kg
[2023-07-05] MEDS ORDERED: LR 1,000 ML IV SCH (07:45)
[2023-07-05] MEDS ORDERED: fentaNYL 100 MCG/2 ML INJECTION As Ordered ONE (08:11)
[2023-07-05] MEDS ORDERED: MIDAZOLAM INJ 2MG/2ML VIAL As Ordered ONE (08:11)
[2023-07-05] MEDS ORDERED: ONDANSETRON 4MG 2ML VIAL As Ordered ONE (08:12)
[2023-07-05] MEDS ORDERED: ROCURONIUM BROMIDE 50MG/5ML VIAL As Ordered ONE (08:12)
[2023-07-05] MEDS ORDERED: LIDOCAINE 2% 100MG/5ML SDV (FOR ANES.) As Ordered ONE (08:12)
[2023-07-05] MEDS ORDERED: propofoL 200 MG/20 ML VIAL As Ordered ONE (08:12)
[2023-07-05] MEDS ORDERED: dexmedeTOMIDine (4MCG/ML)200MCG/50ML BTL (PRECEDEX) As Ordered ONE (08:16)
[2023-07-05] MEDS ORDERED: ACETAMINOPHEN 1000MG 100ML IV BAG As Ordered ONE (08:51)
[2023-07-05] MEDS: INDOCYANINE GREEN 25MG VIAL (IC-GREEN) IV ONE (09:18)
[2023-07-05] MEDS: ceFAZolin SOD 2 GM in IV 1 EA IV ONE (09:21)
[2023-07-05] MEDS: HEPARIN SOD (PORCINE) 5000UNITS/ML 1ML VIAL/SYRINGE SQ ONE (09:33)
[2023-07-05] MEDS ORDERED: SUGAMMADEX SODIUM 500 MG/5 ML VIAL (BRIDION) As Ordered ONE (09:51)
[2023-07-05] MEDS ORDERED: KETOROLAC 60MG 2ML VIAL As Ordered ONE (09:51)
[2023-07-05] MEDS ORDERED: ePHEDrine SULFATE 25 MG/5 ML(5MG/ML) SYRINGE As Ordered ONE (10:20)
[2023-07-05] MEDS ORDERED: fentaNYL 100 MCG/2 ML INJECTION IV PRN (10:40)
[2023-07-05] MEDS: LR 1,000 ML IV SCH (10:55)
[2023-07-05] MEDS: ONDANSETRON 4MG 2ML VIAL IV PRN (10:55)
[2023-07-05] MEDS: oxyCODONE 5MG TAB PO PRN (10:56)
[2023-07-05] MEDS: HYDROMORPHONE HCL 0.5 MG/ 0.5 ML SYRINGE IV PRN (10:56)
[2023-07-05 12:50] VITALS: BP 122/72; TEMP 97.1; O2SAT 97
== END 2023-07-05 13:00 | disposition home or self-care (01) ==
LOC: M SDC 07:28
PROVIDERS: ATTEND Surgery
DX: K80.10 Calculus of gallbladder with chronic cholecystitis without obstruction (principal); E06.3 Autoimmune thyroiditis; R16.0 Hepatomegaly, not elsewhere classified; Z79.890 Hormone replacement therapy
CPT/HCPCS: 47562; 81025; 88304; J0131; J0665; J0690; J1100; J1170; J1885; J2250; J2405; J3010; Q9968; S2900

== ENCOUNTER → 2023-08-14 | Outpatient (REF) | payer BC, OTHER | LOC: M LAB REF 12:28 | PROVIDERS: ATTEND Pediatrics | DX: E03.9 Hypothyroidism, unspecified (principal) ==

== ENCOUNTER → 2023-12-18 | Outpatient (REF) | payer OTHER, BC ==
[~2023-12-18] MED LIST changes: -LEVO50TA5; +LEVO50TA5 PO; +MULTTAB61 PO
[2023-12-18 14:03] LABS: BASO # 0.1 10^3/uL (0.0-0.2); BASO % 0.6 % (0.0-1.0); EOS # 0.2 10^3/uL (0.0-0.5); EOS % 2.2 % (0.0-3.0); HEMATOCRIT 43.7 % (36.0-47.0); HEMOGLOBIN 14.2 g/dl (12.0-15.5); LYMPH # 3.1 10^3/uL (1.5-5.0); LYMPH % 33.4 % (24.0-44.0); MEAN CORPUSCULAR HEMOGLOBIN 27.8 pg (27.0-33.0); MEAN CORPUSCULAR HGB CONC 32.5 g/dl (32.0-36.5); MEAN CORPUSCULAR VOLUME 85.5 fl (80.0-96.0); MONO # 0.5 10^3/uL (0.0-0.8); MONO % 5.4 % (2.0-8.0); NEUTROPHILS # 5.4 10^3/uL (1.5-8.5); NEUTROPHILS % 58.1 % (36.0-66.0); PLATELET COUNT, AUTOMATED 364 10^3/uL (150-450); RED BLOOD COUNT 5.11 10^6/uL (4.00-5.40); WHITE BLOOD COUNT 9.4 10^3/uL (4.0-10.0)
== END ==
LOC: M LAB REF 12:59
PROVIDERS: ATTEND Pediatrics
DX: E03.9 Hypothyroidism, unspecified (principal)

== ENCOUNTER 2023-12-25 09:32 | Day surgery (SDC) | payer BC ==
[~2023-12-25] VITALS: Ht 162.6 cm; Wt 99.2 kg
[2023-12-25] MEDS ORDERED: LR 1,000 ML IV SCH (10:00)
[2023-12-25] MEDS ORDERED: fentaNYL 100 MCG/2 ML INJECTION As Ordered ONE (10:25)
[2023-12-25] MEDS ORDERED: ROCURONIUM BROMIDE 50MG/5ML VIAL As Ordered ONE (10:25)
[2023-12-25] MEDS ORDERED: LIDOCAINE 2% 100MG/5ML SDV (FOR ANES.) As Ordered ONE (10:25)
[2023-12-25] MEDS ORDERED: propofoL 200 MG/20 ML VIAL As Ordered ONE (10:25)
[2023-12-25] MEDS ORDERED: ONDANSETRON 4MG 2ML VIAL As Ordered ONE (10:25)
[2023-12-25] MEDS ORDERED: MIDAZOLAM INJ 2MG/2ML VIAL As Ordered ONE (10:26)
[2023-12-25] MEDS ORDERED: SUGAMMADEX SODIUM 500 MG/5 ML VIAL (BRIDION) As Ordered ONE (10:33)
[2023-12-25] MEDS: OXYMETAZOLINE 0.05% NASAL SPRAY (AFRIN) As Ordered ONE (11:47)
[2023-12-25] MEDS ORDERED: fentaNYL 100 MCG/2 ML INJECTION IV PRN (11:55)
[2023-12-25] MEDS ORDERED: oxyCODONE 5MG TAB PO PRN (11:55)
[2023-12-25] MEDS: ONDANSETRON 4MG 2ML VIAL IV PRN (12:48)
[2023-12-25 13:10] VITALS: BP 142/72
[2023-12-25 13:26] VITALS: TEMP 97; O2SAT 96
== END 2023-12-25 13:38 | disposition home or self-care (01) ==
LOC: M SDC 09:32
PROVIDERS: ATTEND Otolaryngology
DX: J35.1 Hypertrophy of tonsils (principal); E06.3 Autoimmune thyroiditis; R16.0 Hepatomegaly, not elsewhere classified; Z79.890 Hormone replacement therapy; Z87.891 Personal history of nicotine dependence
CPT/HCPCS: 42826; 81025; 88302; J1100; J2250; J2405; J3010